=== PATIENT | male | born 1990 | race Caucasian/White ===

== ENCOUNTER 2018-09-26 15:05 | Emergency (ER) | payer OTHER ==
[~2018-09-26] VITALS: Ht 185.4 cm; Wt 73.0 kg
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
[2018-09-26 15:52] LABS: BASO % 1 % (0-3); EOS # 0.1 x10^3/uL (0.0-0.7); EOS % 1 % (0-3); HEMATOCRIT 38.1 % (39.0-53.0); LYMPH # 1.2 x10^3/uL (1.0-4.8); LYMPH % 16 % (24-48); MEAN CORPUSCULAR HEMOGLOBIN 30 pg (25-35); MEAN CORPUSCULAR HGB CONC 34 g/dL (31-37); MEAN CORPUSCULAR VOLUME 89 fL (79-100); MONO # 0.4 x10^3/uL (0.0-1.1); MONO % 5 % (0-9); NEUT # 5.9 x10^3uL (1.8-7.7); NEUT % 77 % (31-73); PLATELET COUNT 307 x10^3/uL (140-400); RED BLOOD COUNT 4.29 x10^6/uL (4.30-5.70); RED CELL DISTRIBUTION WIDTH 13.7 % (11.5-14.5); WHITE BLOOD COUNT 7.6 x10^3/uL (4.0-11.0)
[2018-09-26 16:09] LABS: ALBUMIN 4.1 g/dL (3.4-5.0); ALBUMIN/GLOBULIN RATIO 1.1 (1.0-1.7); CALCIUM 9.3 mg/dL (8.5-10.1); CREATININE 1.4 mg/dL (0.7-1.3); GFR 61.3; POTASSIUM 3.7 mmol/L (3.5-5.1); TOTAL BILIRUBIN 0.4 mg/dL (0.2-1.0); TOTAL PROTEIN 7.9 g/dL (6.4-8.2)
[2018-09-26 16:12] VITALS: BP 122/73
== END 2018-09-26 16:12 | disposition home or self-care (01) ==
LOC: ER 15:05
DX: Z77.21 Contact with and (suspected) exposure to potentially hazardous body fluids (principal); R79.89 Other specified abnormal findings of blood chemistry; I10 Essential (primary) hypertension; I12.9 Hypertensive chronic kidney disease with stage 1 through stage 4 chronic kidney disease, or unspecified chronic kidney disease; N18.9 Chronic kidney disease, unspecified
CPT/HCPCS: 36415; 80053; 85025; 86703; 86705; 86709; 86803; 87340; 99283

== ENCOUNTER 2021-02-09 11:13 | Emergency (ER) | payer OTHER ==
[~2021-02-09] VITALS: Ht 185.4 cm; Wt 85.7 kg
[2021-02-09 11:20] VITALS: BP 147/73
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
--- NOTE | 2021-02-09 12:15 | RAD ---
3 views right hand 02/09/2021 11:47 AM Indication: Reason: hand injury / Spl. Instructions: / History: Comparison: None Findings: There is an acute, likely traumatic fracture of the fifth metacarpal with significant anter ior angulation of the distal fracture fragment. Fracture does not involve the articular surface. No a ssociated dislocation is identified. Soft tissue edema is present. IMPRESSION: Angulated fracture of the fifth metacarpal Electronically signed by: Arnulfo Valentine MD (02/09/2021 12:12 PM) [id number]
[2021-02-09] MEDS ORDERED: HYDR-2155 PO (12:18)
== END 2021-02-09 12:20 | disposition home or self-care (01) ==
LOC: ER 11:13
DX: S62.306A Unspecified fracture of fifth metacarpal bone, right hand, initial encounter for closed fracture (principal); I12.9 Hypertensive chronic kidney disease with stage 1 through stage 4 chronic kidney disease, or unspecified chronic kidney disease; N18.9 Chronic kidney disease, unspecified; Y08.89XA Assault by other specified means, initial encounter; Y93.89 Activity, other specified; Y92.89 Other specified places as the place of occurrence of the external cause; Y99.8 Other external cause status
CPT/HCPCS: 29125; 73130; 99283